=== PATIENT | male | born 1995 | race Caucasian/White ===

== ENCOUNTER 2016-11-18 11:36 | Inpatient (IN) | payer OTHER ==
[2016-11-18] MEDS ORDERED: VANCOMYCIN HCL/NORMAL SALINE 250 ML IV ONE (11:55)
[2016-11-18] MEDS ORDERED: NS 1,000 ML IV ONE ×2 (11:58)
--- NOTE | 2016-11-18 11:58 | EDPHY ---
H & P Time Seen by Provider: 11/18/16 11:43 HPI/ROS: CHIEF COMPLAINT: Left knee pain HISTORY OF PRESENT ILLNESS: This 21-year-old man with scrambling on a roof 2 days ago and cut his left knee on a metal protrusion. He felt pretty well yesterday but then over the last 12-15 hours he has had rapidly increasing severe left knee pain which is worse with palpation and any movement. Does not radiate.It is associated with fever and chills. Associated with redness and swelling of the area and decreased movement. REVIEW OF SYSTEMS: Eye: no change in vision ENT: no sore throat Cardiac: no chest pain or syncope Pulmonary: no cough or SOB Abdomen: no vomiting, diarrhea, abdominal pain Musculoskeletal: no back pain Skin: He has a healing burn on his right arm from previous injury, and some abrasions on his left arm from the same incident. Neuro: no headache Constitutional: Fever and chills as above. : no urinary symptoms A comprehensive 10 point review of systems is otherwise negative aside from elements mentioned in the history of present illness. PAST MEDICAL HISTORY: Negative, tetanus up-to-date. Social history: Nonsmoker General Appearance: Alert and conversant, cooperative. Eyes: No scleral icterus. ENT, Mouth: Normal mucous membranes. Respiratory: Normal respiratory effort, breath sounds equal, lungs are clear to auscultation. Cardiovascular: Regular rate and rhythm. Gastrointestinal: Abdomen is soft and non tender. Neurological: Alert and oriented x3. Normally conversant. Face symmetric, normal movement and sensation in all extremities. Skin: Patient has a 2 cm laceration on the distal left thigh laterally just above the knee. His entire knee is red swollen warm and tender with decreased range of motion but no lymphangitis. Musculoskeletal: Decreased range of motion of the left knee but compartments are soft. However he does have active flexion to about 90 degrees. Psychiatric: Not agitated. Emergency Department course/MDM: Patient presents with acute cellulitis and wound infection on his left knee with tachycardia to 127. He is also tachypneic and so meets SIRS criteria on arrival. IV normal saline resuscitation, wound culture sent, vancomycin 1 g IV, admission to hospitalist service. 1220: Meet severe sepsis criteria with elevated lactate, IV Invanz 1 g is added , 30 mL/kilos IV fluid resuscitation bolus, admission with surgical consultation. 1232: Bj for Dr. Trimble will admit. Seen by Dr. Yepez in the emergency department. Discussed in detail with the patient's mother who was here in the room with the patient. Smoking Status: Never smoked Constitutional: Initial Vital Signs Temperature (C) 37.5 C 11/18/16 11:39 Heart Rate 127 H 11/18/16 11:39 Respiratory Rate 22 H 11/18/16 11:39 Blood Pressure 122/59 H 11/18/16 11:39 O2 Sat (%) 95 11/18/16 11:39 O2 Delivery Mode Room Air Allergies/Adverse Reactions: No Known Allergies Allergy (Unverified 11/18/16 11:39) Home Medications: Medication Instructions Recorded NK [No Known Home Meds] 11/18/16 Medical Decision Making - Diagnostics Imaging: Left knee x-ray viewed independently by myself shows soft tissue swelling, no foreign body. X-ray reviewed with Dr. Matthews at 12:43 p.m. no joint effusion. Procedures: Procedure: Limited ultrasound of left knee. Indication: Cellulitis evaluate for abscess Findings: No fluid collection visualized on multiple images, soft tissues examined around the laceration. Interpretation: No abscess. Images personally obtained and interpreted by myself. Images archived. Differential Diagnosis: Differential considered including but not limited to cellulitis, fasciitis, abscess, DVT, foreign body Consult/Admit Bed Type: Marleni Voss saw pt in ED - Data Points Laboratory Results: Laboratory Results 11/18/16 12:00 11/18/16 12:00 11/18/16 11/18/16 11/18/16 12:57 12:00 11:55 WBC 27.44 H 10^3/uL (3.80-9.50) RBC 5.08 10^6/uL (4.40-6.38) Hgb 16.7 g/dL (13.7-17.5) Hct 45.9 % (40.0-51.0) MCV 90.4 fL (81.5-99.8) MCH 32.9 pg (27.9-34.1) MCHC 36.4 g/dL (32.4-36.7) RDW 11.7 % (11.5-15.2) Plt Count 197 10^3/uL (150-400) MPV 9.7 fL (8.7-11.7) Neut % (Auto) Not Reported Lymph % (Auto) Not Reported [place] % (Auto) Not Reported Eos % (Auto) Not Reported Baso % (Auto) Not Reported Nucleat RBC Rel Count 0.0 % (0.0-0.2) Absolute Neuts (auto) Not Reported Absolute Lymphs (auto) Not Reported Absolute Monos (auto) Not Reported Absolute Eos (auto) Not Reported Absolute Basos (auto) Not Reported Absolute Nucleated RBC 0.00 10^3/uL (0-0.01) Immature Gran % Not Reported Seg Neutrophils % 77 % Band Neutrophils % 13 % Lymphocytes % 1 % Monocytes % 9 % Immature Gran # Not Reported Absolute Seg Neuts 21.13 H 10^/uL (1.70-6.50) Absolute Band Neuts 3.57 H 10^3/uL (0.00-0.70) Absolute Lymphocytes 0.27 L 10^3/uL (1.00-3.00) Absolute Monocytes 2.47 H 10^3/uL (0.30-0.80) RBC/WBC/PLT Morphology NORMAL (NORMAL) Platelet Estimate ADEQUATE (ADEQ) Smear Review By Pending PT 13.5 SEC (12.0-15.0) INR 1.04 (0.83-1.16) APTT 25.2 SEC (23.0-38.0) VBG Lactic Acid 1.5 mmol/L 2.6 H mmol/L (0.7-2.1) (0.7-2.1) Sodium 138 mEq/L (134-144) Potassium 4.5 mEq/L (3.5-5.2) Chloride 104 mEq/L (97-110) Carbon Dioxide 21 L mEq/l (22-31) Anion Gap 13 mEq/L (8-16) BUN 10 mg/dL (7-23) Creatinine 0.9 mg/dL (0.7-1.3) Estimated GFR > 60 Glucose 115 H mg/dL (70-100) Calcium 9.7 mg/dL (8.5-10.4) Total Bilirubin 1.7 H mg/dL (0.1-1.4) Microbiology Results: MICROBIOLOGY 11/18/16 11:54 Knee - Swab Gram Stain - Final Medications Given: Discontinued Medications Vancomycin/Sodium Chloride (Vancomycin 1 Gm (Premix)) 250 mls @ 250 mls/hr IV EDNOW ONE PRN Reason: Protocol Stop: 11/18/16 12:54 Last Admin: 11/18/16 12:20 Dose: 250 mls Ertapenem 1 gm/ Sodium (Chloride) 100 mls @ 200 mls/hr IV EDNOW ONE PRN Reason: Protocol Stop: 11/18/16 12:47 Last Admin: 11/18/16 13:26 Dose: 100 mls Sodium Chloride (Ns *For Sepsis Order Set Only*) 2,722 ml IV EDNOW ONE Stop: 11/18/16 12:18 Last Admin: 11/18/16 12:19 Dose: 2,722 ml Departure - Departure Disposition: [facility] Inpatient Acute Clinical Impression: Cellulitis of left knee Condition: Fair Referrals: NONE *PRIMARY CARE P,. [Primary Care Provider] - As per Instructions
[2016-11-18] MEDS ORDERED: NS 1,000 ML BAG *FOR SEPSIS ORDER SET ONLY IV ONE (12:17)
[2016-11-18 12:18] LABS: ADD DIFF? YES; ADD MORPH? NO; ADD SCAN? NO; ATYPICAL LYMPHOCYTE FLAG 0 (0-99); FRAGMENT RBC FLAG 0 (0-99); HEMATOCRIT 45.9 % (40.0-51.0); HEMOGLOBIN 16.7 g/dL (13.7-17.5); LEFT SHIFT FLG 20 (0-99); LIPEMIA HEMOLYSIS FLAG 90 (0-99); MEAN CELL HEMOGLOBIN 32.9 pg (27.9-34.1); MEAN CELL HEMOGLOBIN CONCENTR. 36.4 g/dL (32.4-36.7); MEAN CELL VOLUME 90.4 fL (81.5-99.8); MEAN PLATELET VOLUME 9.7 fL (8.7-11.7); PLATELET CLUMPS FLAG 0 (0-99); PLATELET COUNT 197 10^3/uL (150-400); RED BLOOD CELL COUNT 5.08 10^6/uL (4.40-6.38); RED CELL DISTRIBUTION WIDTH 11.7 % (11.5-15.2)
[2016-11-18] MEDS ORDERED: ERTAPENEM 1 GM in NS 100 ML IV ONE (12:18)
[2016-11-18 12:26] LABS: APTT 25.2 SEC (23.0-38.0); INR 1.04 (0.83-1.16); PROTIME(PATIENT) 13.5 SEC (12.0-15.0)
[2016-11-18 12:43] LABS: ANION GAP 13 mEq/L (8-16); BILIRUBIN,TOTAL 1.7 mg/dL (0.1-1.4); CALCIUM 9.7 mg/dL (8.5-10.4); CARBON DIOXIDE 21 mEq/l (22-31); CHLORIDE 104 mEq/L (97-110); CREATININE 0.9 mg/dL (0.7-1.3); GLOMERULAR FILTRATION RATE > 60; GLUCOSE 115 mg/dL (70-100); POTASSIUM 4.5 mEq/L (3.5-5.2); SODIUM 138 mEq/L (134-144)
[2016-11-18 13:11] LABS: LACGHOST ORDER
[2016-11-18 13:16] LABS: PLATELET ESTIMATE ADEQUATE (ADEQ)
--- NOTE | 2016-11-18 13:44 | DX ---
Left Knee, Five Views Indication: Laceration over the distal lateral femur. Pain and swelling. Findings: A triangularly shaped dense material at the proximal medial tibia likely is an ossicle equi valent. At the distal lateral femur where the laceration is, there is no evidence for radiopaque soft tissue foreign body. The underlying bones and joints are within normal limits. No significant joint effusion. Significant soft tissue swelling at the distal anterior femur. Impression: 1. No radiopaque foreign body. 2. Soft tissue swelling. 3. No fracture or joint effusion. Findings are reviewed with Dr. Andrews Milton.
[2016-11-18] MEDS ORDERED: ONDANSETRON 4 MG/2 ML VIAL IVP PRN (16:42)
[2016-11-18] MEDS ORDERED: KETOROLAC 30 MG/1 ML SDV IVP PRN (16:42)
--- NOTE | 2016-11-18 17:22 | GHP ---
[f rep st] HISTORY AND PHYSICAL DATE OF ADMISSION: 11/18/2016 CHIEF COMPLAINT: Left knee redness. HISTORY: The patient is a 21-year-old male student who was intoxicated on Saturday night and was sc rambling onto a roof and scraped his left leg just above the knee. The next day it started to get mo re red with increasing pain. He had shaking chills all night and tactile fevers. He is having some drainage from the wound. He is now having streaking erythema up toward the groin. In the emergency room, they did do an ultrasound and did not find any underlying fluid to tap. PAST MEDICAL HISTORY: Negative. MEDICATIONS: None. ALLERGIES: No known drug allergies. SOCIAL HISTORY: No smoking. He drinks alcohol 2-3 times a week, 10 drinks on each occasion. He is a student at [employer] and also has a job. Lives with roommates. He grew up in [place]. His mom is at bedside. REVIEW OF SYSTEMS: Complete review of systems obtained and review of systems is negative on constitu tional, HEENT, GI, pulmonary, cardiovascular, , hematology, skin, muscular, endocrine, psych except for positives and negatives as in HPI. FAMILY HISTORY: Grandfather with lung cancer and NC at age 65. PHYSICAL EXAMINATION: GENERAL: Well-developed, well-nourished male, in no acute distress. VITAL SI GNS: Temperature is 37.5, pulse 127, blood pressure 159/78, sating 98% on room air. EYE: Normal co njunctiva. Pupils round and react light. ENT: Normal ears and nose. Hearing intact. Normal teeth . Oropharynx moist. NECK: Trachea midline. No thyromegaly. CHEST: Normal respiratory effort. PRASHANT NGS: Clear to auscultation bilaterally. CARDIOVASCULAR: Regular rhythm. No murmur. No lower extr emity edema. ABDOMEN: Soft, nontender. No hepatosplenomegaly. SKIN: He has some erythema just ab ove the knee, does not appear to be involving the knee joint. He has a significant open wound with s kin loss with no purulent drainage at this time. The erythema does not have any underlying fluctuanc e. There is dramatic streaking up the lymphatic system toward the groin on the upper leg. He has no rmal range of motion of the knee. MUSCULOSKELETAL: No cyanosis or clubbing. Strength 5/5 upper and lower extremities. NEUROLOGIC: Cranial nerves intact. Normal sensation to light touch. PSYCH: A lert and oriented x3. Normal affect. Normal judgment, insight. Normal memory. LABS: White count 27.44, 13% bands, hematocrit 45.9, platelets 197. Sodium 138, potassium 4.5, chlo ride 104, bicarb 21, BUN 10, creatinine 0.9, glucose 115. Lactate initially 2.6, now down to 1.5. K nee x-ray shows soft tissue swelling. ASSESSMENT/PLAN: 1. Left leg cellulitis. He has been started on IV vancomycin in the emergency room, which I will co ntinue until methicillin-resistant Staphylococcus aureus can be ruled out given the fact he is living in close quarters of a college dormitory type situation. Ultrasound was negative for underlying flu id in the emergency room. Will consult ID. 2. Sepsis. He did receive an appropriate IV fluid bolus in the emergency room with improvement of l actate. Will continue IV fluids. 3. Open wound. Will consult identity access management architect for management plan. 4. Alcohol use. He is drinking in a binge like manner. I doubt he will withdrawal. He should be c ounseled regarding responsible alcohol use. CODE STATUS: Full. ADMISSION STATUS: 1. Observation. Depending on progress, he may transition to oral antibiotics. 2. DVT prophylaxis: He is low risk. /[id number]/MODL
[2016-11-18] MEDS: ACETAMINOPHEN 325 MG TAB PO PRN ×2 (18:01→23:47)
[2016-11-18] MEDS: VANCOMYCIN 1.5 GM in D5W 250 ML IV SCH (23:48)
[2016-11-18] MEDS: NS 1,000 ML IV SCH (23:48)
[2016-11-19 05:18] LABS: ADD DIFF? YES; ADD MORPH? NO; ADD SCAN? YES; ATYPICAL LYMPHOCYTE FLAG 0 (0-99); FRAGMENT RBC FLAG 0 (0-99); HEMOGLOBIN 15.1 g/dL (13.7-17.5); LIPEMIA HEMOLYSIS FLAG 90 (0-99); MEAN CELL HEMOGLOBIN 33.7 pg (27.9-34.1); MEAN CELL VOLUME 93.8 fL (81.5-99.8); MEAN PLATELET VOLUME 10.5 fL (8.7-11.7); PLATELET CLUMPS FLAG 10 (0-99); PLATELET COUNT 157 10^3/uL (150-400); RED BLOOD CELL COUNT 4.48 10^6/uL (4.40-6.38)
[2016-11-19 05:28] LABS: ALANINE AMINOTRANSFERASE 36 IU/L (21-72); ALBUMIN 3.2 g/dL (3.5-5.0); ALKALINE PHOSPHATASE 84 IU/L (38-126); ANION GAP 8 mEq/L (8-16); ASPARTATE AMINOTRANSFERASE 22 IU/L (17-59); BILIRUBIN,TOTAL 1.2 mg/dL (0.1-1.4); BILIRUBIN-CONJUGATED 0.5 mg/dL (0.0-0.5); BILIRUBIN-UNCONJUGATED 0.7 mg/dL (0.0-1.1); CALCIUM 8.9 mg/dL (8.5-10.4); CARBON DIOXIDE 21 mEq/l (22-31); CHLORIDE 105 mEq/L (97-110); CREATININE 0.9 mg/dL (0.7-1.3); GLOMERULAR FILTRATION RATE > 60; GLUCOSE 100 mg/dL (70-100); POTASSIUM 4.1 mEq/L (3.5-5.2); SODIUM 134 mEq/L (134-144); TOTAL PROTEIN 5.8 g/dL (6.3-8.2)
[2016-11-19 05:45] LABS: LEFT SHIFT FLG 120 (0-99)
[2016-11-19 06:52] LABS: SCAN POSITIVE
[2016-11-19 06:57] LABS: PLATELET ESTIMATE ADEQUATE (ADEQ)
[2016-11-19] MEDS: ACETAMINOPHEN 325 MG TAB PO PRN ×4 (07:54→20:07)
--- NOTE | 2016-11-19 08:37 | WOCRNPDOC ---
WOCRN Advanced Assessment Note - Skin Integrity Problem, Advanced Assess Left Knee Laceration Dressing Type: Gauze, Maged Dressing Description: Clean/Dry, Intact Exudate Amount: Minimal Exudate Characteristic(s): Serosanguinous Integumentary Issue Intervention: Dressing Removed Gita Wound Tissue: Erythema (marked previously by staff climate scientist ), Hot Wound Bed Color: Red Wound Bed Constitution: Smooth Tissue Site Measurement - Head-to-Toe Length X Width X Depth (cm): 0.8x1.1x0.3 Skin Integrity Problem Comment: Small laceration extending to a shallow scrape distally. Apply silvasorb and Allevyn. Please reconsult prn.
--- NOTE | 2016-11-19 08:42 | HOSPPROG ---
Hospitalist Progress Note Assessment/Plan: Patient is a 21-year-old male who was a [employer] ([place], [place]) student. He scraped his left knee leg above the knee area. He started to have shaking chills and fevers. He came to the ER for further care. Today is my 1st encounter with the patient. Chart reviewed with Dr. Trimble who admitted the patient. Spoke with Dr. Jimenez who will see the patient today. #. left knee cellulitis with ascending lymphangitis * concern for strep infection * on vancomycin at this time * spoke with Dr. Jimenez and he will evaluate and decide on further antibiotics #. sepsis * patient continues to be tachycardic, febrile and has elevated white blood cell count * lactate improved with IV hydration #. alcohol use: will discuss when patient is feeling better #. DVT prophylaxis: LMWH Subjective: Joaquin is c/o right groin tenderness/also said he has been having ongoing fevers with associated chills. Objective: Vital Signs Temp Pulse Resp BP Pulse Ox 39.0 C H 118 H 16 127/59 H 95 11/19/16 07:49 11/19/16 07:49 11/19/16 07:49 11/19/16 07:49 11/19/16 07:49 Laboratory Results 11/19/16 04:24 11/19/16 04:24 11/18/16 11/19/16 11/20/16 05:59 05:59 05:59 Intake Total 5400 Balance 5400 PT 13.5 SEC (12.0-15.0) 11/18/16 12:00 INR 1.04 (0.83-1.16) 11/18/16 12:00 - Physical Exam Constitutional: uncomfortable, No not in pain Eyes: PERRL Ears, Nose, Mouth, Throat: hearing normal Cardiovascular: regular rate and rhythym, tachycardia Respiratory: no respiratory distress Gastrointestinal: normoactive bowel sounds Skin: warm (left knee with eyrthema extending up above the knee area/ there is streaking toward the groin area) Musculoskeletal: No no muscle tenderness Neurologic: AAOx3 Psychiatric: interacting appropriately, not anxious ICD10 Worksheet Patient Problems: Problems Problem Status Diagnosed Cellulitis of left knee Acute
--- NOTE | 2016-11-19 10:54 | GCON ---
[f rep st] CONSULTATION INPATIENT INFECTIOUS DISEASE CONSULTATION. REFERRING PHYSICIAN: Aiyana Lorenzo NP REASON FOR CONSULTATION: Left knee cellulitis with ascending lymphangitis. HISTORY OF PRESENT ILLNESS: Patient is a 21-year-old male, who suffered a minor anterior left knee i njury and abrasion on Saturday night. Patient reports having no problems on Saturday, but by late Satu evening the soft tissue over the area started to become painful. He started feeling systemicall y ill overnight Saturday to Saturday and presented to [facility] mid day on Saturday with f tee, chills and left knee redness. He was placed on vancomycin monotherapy. Currently, he is rest ing comfortably in his hospital room. He notes that the discomfort in the left knee area is pretty m uch identical to yesterday. He notes continued fevers. He is able to move his knee passively and th rough limited range of motion without pain. PAST MEDICAL HISTORY: None. PAST SURGICAL HISTORY: None noted. ANTIBIOTICS: Vancomycin. ALLERGIES: No known drug allergies. SOCIAL HISTORY: Patient is a student at . He has intermittent alcohol use. No tobacco use. Trish ve of [place], [place]. FAMILY HISTORY: Reviewed but noncontributory. REVIEW OF SYSTEMS: Other than that detailed above in history of present illness, a comprehensive 10- system review is negative. PHYSICAL EXAMINATION: VITAL SIGNS: Temperature maximum is 39.0, temperature current is 39.0, heart rate 118, respiratory rate is 16, blood pressure is 127/59. GENERAL: The patient is a well-formed, well-nourished mildly toxic young male in no acute distress. He is alert and oriented x3. He has a pleasant demeanor. HEENT: Normocephalic for age, atraumatic. No scleral icterus. No oral lesion. No drainage from the nares. Eyes: Lids and conjunctivae within normal limits. Pupils are equal an d round bilaterally. NECK: Supple without meningismus. LUNGS: Clear to auscultation bilaterally w ith good effort. HEART: Regular rate and rhythm. No murmur, rub, or gallop noted. EXTREMITIES: T he patient has mild peripheral edema of the left lower extremity. This is concentrated around the le ft knee area. SKIN: Warm and dry to the touch. No rash noted. Patient has mild abrasions on the l ateral superior aspect of the left knee. There is confluent erythema around the entirety of the knee s stretching up into the thigh, especially medially up the lymphatic chain. He is warm over the area and tender to touch. No fluctuance. MUSCULOSKELETAL: No other muscle belly tenderness is noted. No joint line effusion or arthritis is seen. NEURO: Cranial nerves 2-12 seem to be intact. Periphe ral sensation seems intact in all extremities. LABORATORY DATA: The patient's CBC dated 11/18/2016 shows a white blood cell count of 27.4, hemoglob in of 16.7, hematocrit 45.9, a platelet count of 197, differential is left shifted with 77% segmented neutrophils, 13% band forms. CBC on 11/19/2016 shows a white blood cell count of 22.3, with a sligh tly decreased left shift. Serum chemistries on 11/19/2016 shows sodium 134, potassium 4.1, chloride of 105, bicarbonate of 21, BUN of 9, creatinine 0.9. AST is 22, ALT is 36. MICROBIOLOGIC DATA: Patient has a knee swab dated 11/18/2016 which gram stain is showing 3+ gram-pos itive cocci. Wound culture is pending. Blood cultures from 11/18/2016 are also pending. ASSESSMENT: Rapid onset soft tissue infection, left knee, with ascending lymphangitis. Certainly se ems streptococcal. Patient has tenderness, although it is not extreme in the area. A lot of warmth and swelling. The vancomycin is likely providing primary coverage. W will add clindamycin for [place] effect. We will dose at 600 mg IV q.6 hours. We will follow his culture data and clinical course. PLAN: 1. Continue vancomycin. 2. Start clindamycin 600 mg IV q.8 hours. 3. Follow up blood and wound cultures, as well as clinical progress. /[id number]/MODL
[2016-11-19] MEDS: VANCOMYCIN 1.5 GM in D5W 250 ML IV SCH ×2 (11:48→22:44)
[2016-11-19] MEDS: CLINDAMYCIN 600 MG/DEXTROSE 50 ML IV SCH ×2 (14:28→21:25)
[2016-11-20 06:53] LABS: ADD DIFF? YES; ADD MORPH? NO; ATYPICAL LYMPHOCYTE FLAG 0 (0-99); FRAGMENT RBC FLAG 0 (0-99); HEMATOCRIT 40.9 % (40.0-51.0); HEMOGLOBIN 14.6 g/dL (13.7-17.5); LIPEMIA HEMOLYSIS FLAG 90 (0-99); MEAN CELL HEMOGLOBIN 33.1 pg (27.9-34.1); MEAN CELL HEMOGLOBIN CONCENTR. 35.7 g/dL (32.4-36.7); MEAN CELL VOLUME 92.7 fL (81.5-99.8); MEAN PLATELET VOLUME 10.2 fL (8.7-11.7); PLATELET CLUMPS FLAG 10 (0-99); PLATELET COUNT 157 10^3/uL (150-400); RED BLOOD CELL COUNT 4.41 10^6/uL (4.40-6.38); RED CELL DISTRIBUTION WIDTH 11.9 % (11.5-15.2)
[2016-11-20 06:56] LABS: ANION GAP 9 mEq/L (8-16); CALCIUM 8.8 mg/dL (8.5-10.4); CARBON DIOXIDE 23 mEq/l (22-31); CHLORIDE 103 mEq/L (97-110); CREATININE 0.9 mg/dL (0.7-1.3); GLOMERULAR FILTRATION RATE > 60; GLUCOSE 102 mg/dL (70-100); LEFT SHIFT FLG 150 (0-99); POTASSIUM 3.8 mEq/L (3.5-5.2); SODIUM 135 mEq/L (134-144)
[2016-11-20 06:57] LABS: ADD SCAN? NO
[2016-11-20 07:32] LABS: PLATELET ESTIMATE ADEQUATE (ADEQ)
[2016-11-20 07:33] LABS: GIANT PLATELETS PRESENT
[2016-11-20] MEDS: CLINDAMYCIN 600 MG/DEXTROSE 50 ML IV SCH ×3 (07:52→21:33)
--- NOTE | 2016-11-20 09:02 | HOSPPROG ---
Hospitalist Progress Note Assessment/Plan: Patient is a 21-year-old male who was a [employer] student. He scraped his left knee leg above the knee area. He started to have shaking chills and fevers. He came to the ER for further care. #. left knee cellulitis with ascending lymphangitis/Group A strep and MSSA * vanco dc today/ changed to Ancef/ also on clindamycin * continues to have fever and more pain and more swelling/ reviewed his care with Dr Coronado/ to get an MRI/ may need surgery to see #. sepsis * patient continues to be tachycardic, febrile and has elevated white blood cell count * lactate improved with IV hydration #. alcohol use: will discuss when patient is feeling better #. DVT prophylaxis: LMWh #. Plan : MRI today, follow blood cx/ repeat labs in a.m./ plan of care discussed with the patient and his mom, who is at the bedside/appreciate Dr Coronado' s involvement. Subjective: Joaquin said his leg is more painful, had pain in right groin area that has resolved. Objective: Vital Signs Temp Pulse Resp BP Pulse Ox 39.5 C H 113 H 18 104/57 L 96 11/20/16 00:00 11/20/16 00:00 11/20/16 00:00 11/20/16 00:00 11/20/16 00:00 Laboratory Results 11/20/16 05:42 11/20/16 05:42 11/19/16 11/20/16 11/21/16 05:59 05:59 05:59 Intake Total 1384 Balance 1384 PT 13.5 SEC (12.0-15.0) 11/18/16 12:00 INR 1.04 (0.83-1.16) 11/18/16 12:00 - Physical Exam Constitutional: uncomfortable, No not in pain Eyes: PERRL Ears, Nose, Mouth, Throat: hearing normal Cardiovascular: regular rate and rhythym, tachycardia Respiratory: no respiratory distress, no rales or rhonchi Gastrointestinal: normoactive bowel sounds, soft, non-tender abdomen Skin: other (left knee, area above the knee with more swelling, increase erythema,redness extends past the demarcation. Has more tenderness on lateral side of the thigh area.) Musculoskeletal: muscular tenderness Neurologic: AAOx3 Psychiatric: interacting appropriately ICD10 Worksheet Patient Problems: Problems Problem Status Onset Cellulitis of left knee Acute
--- NOTE | 2016-11-20 10:34 | PCMIDPN ---
Assessment/Plan: Assessment/Plan: 1. LLE cellulitis with extension: r/o necrotizing fascitis: - Spiking fevers despite vanco + clinda. - Cx with Group A strep and MSSA from wound - blood cx pending - Given above extension despite atbx, feel further evaluation is warranted with MRI with and without contrast of Left LE. spoke with radiology to coordiate STAT study. -Will Change vanco to Ancef and continue Clinda for now. -Will discuss further with surgery as well. -long discussion with patient , mom at bedside and father on phone regarding plan of care, culture results, mri, possible need for surgery etc. - care coorinated with hospitalist team and his Rn today as well. Subjective: spiking fevers. extension of erythema beyond areas of demarcation both on thigh and calf with increase in pain especially laterally. 8/10 in nature. Denies sob. denies abd pain. had loose mush stools yesterday and today. mom at bedside , dad on phone listening in to conversation. Objective: Vital Signs Temp Pulse Resp BP Pulse Ox 37.9 C 110 H 18 117/65 95 11/20/16 08:00 11/20/16 08:00 11/20/16 08:00 11/20/16 08:00 11/20/16 08:00 Laboratory Results 11/20/16 05:42 11/20/16 05:42 11/19/16 11/20/16 11/21/16 05:59 05:59 05:59 Intake Total 1384 Balance 1384 - Physical Exam General Appearance: alert Respiratory: lungs clear Cardiac/Chest: regular rate, rhythm Extremities: swelling Abdomen: normal bowel sounds, non-tender, soft, No distended Skin: erythema (Left thigh and leg with erythema extending beyond areas of demaraction. Skin is hot to touch. quite tender especially lateral thigh, popliteal and lateral calf. two abrasion noted with purulence noted, superfical in nature. ) - Time Spent With Patient Time Spent with Patient: greater than 35 minutes Time Spent with Patient: Greater than 35 minutes spent on this patients care, greater than 50% of time spent counseling, educating, and coordinating care regarding the above mentioned plan. ICD10 Worksheet Patient Problems: Problems Problem Status Onset Cellulitis of left knee Acute
[2016-11-20] MEDS ORDERED: ceFAZolin 2 GM/DEXTROSE 100 ML IV SCH (10:35)
[2016-11-20] MEDS ORDERED: GADOBUTROL 10 ML VIAL IVP ONE (11:19)
[2016-11-20] MEDS: ACETAMINOPHEN 325 MG TAB PO PRN ×2 (12:57→20:50)
[2016-11-20] MEDS: ceFAZolin 2 GM in D5W 100 ML IV SCH ×3 (12:57→21:33)
[2016-11-20] MEDS: ENOXAPARIN 40 MG/0.4 ML SYR SC SCH (15:24)
[2016-11-20] MEDS: NS 1,000 ML IV SCH (15:48)
[2016-11-21] MEDS: NS 1,000 ML IV SCH ×2 (02:54→15:29)
[2016-11-21 05:49] LABS: % IMMATURE GRANULYOCYTES 0.4 % (0.0-1.1); ABSOLUTE IMMATURE GRANULOCYTES 0.07 10^3/uL (0.00-0.10); ADD DIFF? NO; ADD MORPH? NO; ADD SCAN? NO; ATYPICAL LYMPHOCYTE FLAG 20 (0-99); FRAGMENT RBC FLAG 0 (0-99); HEMATOCRIT 40.4 % (40.0-51.0); HEMOGLOBIN 14.5 g/dL (13.7-17.5); LEFT SHIFT FLG 20 (0-99); LIPEMIA HEMOLYSIS FLAG 90 (0-99); MEAN CELL HEMOGLOBIN CONCENTR. 35.9 g/dL (32.4-36.7); MEAN PLATELET VOLUME 10.2 fL (8.7-11.7); PLATELET CLUMPS FLAG 0 (0-99); PLATELET COUNT 163 10^3/uL (150-400); RED BLOOD CELL COUNT 4.39 10^6/uL (4.40-6.38); RED CELL DISTRIBUTION WIDTH 11.5 % (11.5-15.2)
[2016-11-21] MEDS: CLINDAMYCIN 600 MG/DEXTROSE 50 ML IV SCH ×3 (05:51→21:34)
[2016-11-21 06:06] LABS: ALANINE AMINOTRANSFERASE 35 IU/L (21-72); ALBUMIN 2.9 g/dL (3.5-5.0); ALKALINE PHOSPHATASE 101 IU/L (38-126); ANION GAP 9 mEq/L (8-16); ASPARTATE AMINOTRANSFERASE 21 IU/L (17-59); CALCIUM 8.4 mg/dL (8.5-10.4); CARBON DIOXIDE 23 mEq/l (22-31); CHLORIDE 104 mEq/L (97-110); CREATININE 0.9 mg/dL (0.7-1.3); GLOMERULAR FILTRATION RATE > 60; GLUCOSE 98 mg/dL (70-100); POTASSIUM 3.7 mEq/L (3.5-5.2); SODIUM 136 mEq/L (134-144); TOTAL PROTEIN 5.6 g/dL (6.3-8.2)
[2016-11-21] MEDS: ceFAZolin 2 GM in D5W 100 ML IV SCH ×3 (06:32→21:33)
[2016-11-21] MEDS: ENOXAPARIN 40 MG/0.4 ML SYR SC SCH (08:39)
--- NOTE | 2016-11-21 09:23 | PCMIDPN ---
Assessment/Plan: Assessment: Plan: Objective: Vital Signs Temp Pulse Resp BP Pulse Ox 37.7 C 100 16 144/75 H 96 11/21/16 08:00 11/21/16 08:00 11/21/16 08:00 11/21/16 08:00 11/21/16 08:00 Laboratory Results 11/21/16 05:39 11/21/16 05:39 11/20/16 11/21/16 11/22/16 05:59 05:59 05:59 Intake Total 1384 3075 Output Total 100 Balance 1384 2975 ICD10 Worksheet Patient Problems: Problems Problem Status Onset Cellulitis of left knee Acute
--- NOTE | 2016-11-21 13:01 | PCMIDPN ---
Assessment/Plan: # Severe left lower extremity cellulitis due to group A strep and MSSA, elements of improvement today with less intense erythema , less pain, improving leukocytosis, and improving fever curve trajectory. Blood cultures from 11/18/2016 remain negative. MRI does not demonstrate joint involvement, abscess or clear necrotizing fasciitis. --plan to continue dual therapy with Ancef and clindamycin --another 1- 2 day of clindamycin for the Eek affect --encouraged ongoing elevation Medications, antibiotic day # 3 Ancef 2 g IV Q 8 Clindamycin 600 mg IV Q 8, # 2 Reviewed findings with patient and his father who are at bedside Subjective: Patient feels that he has less pain associated with his left leg and that his fever is improving. He was able to sleep ease year last night. No diarrhea Objective: Vital Signs Temp Pulse Resp BP Pulse Ox 37.8 C 97 17 132/71 H 95 11/21/16 12:00 11/21/16 12:00 11/21/16 12:00 11/21/16 12:00 11/21/16 12:00 Laboratory Results 11/21/16 05:39 11/21/16 05:39 11/20/16 11/21/16 11/22/16 05:59 05:59 05:59 Intake Total 1384 3075 Output Total 100 Balance 1384 2975 - Physical Exam General Appearance: alert, no apparent distress, other (Healthy-appearing young male) Respiratory: lungs clear Neck: supple Cardiac/Chest: regular rate, rhythm Extremities: normal range of motion (Left knee without signs of pain with range of motion), swelling (Mild left thigh swelling), erythema (Extensive erythema with irregular borders from upper lateral left thigh extending to lower anterior thigh, knee, lateral calf. Obvious progression past initial lines drawn in the emergency room, which was present yesterday), other (Tenderness most prominent left lateral upper thigh), No calf tenderness Skin: normal color, warm/dry, No rash Neuro/Psych: alert, normal mood/affect, oriented x 3 - Time Spent With Patient Time Spent with Patient: greater than 25 minutes (Coordination of care and examination with Dr. Megan Maher) Time Spent with Patient: Greater than 25 minutes spent on this patients care, greater than 50% of time spent counseling, educating, and coordinating care regarding the above mentioned plan. ICD10 Worksheet Patient Problems: Problems Problem Status Onset Cellulitis of left knee Acute
[2016-11-21] MEDS: IBUPROFEN 600 MG TAB PO PRN (16:18)
--- NOTE | 2016-11-21 16:18 | HOSPPROG ---
Hospitalist Progress Note Assessment/Plan: Patient is a 21-year-old male who was a [employer] student- scraped his left leg above the knee and developed shaking chills and fevers # acute severe left leg cellulitis with ascending lymphangitis- admit wound culture with both Group A strep and MSSA MRI ( personally reviewed and interpreted) without abscess or intramuscular involvement erythema extending beyond markings this morning- however streaking improved - fever also improving - cont synergistic use of IV Ancef and clindamycin - start ibuprofen # sepsis 2/2 cellulitis- (patient presented febrile, tachycardic and WBC of 27) - received aggressive fluid resuscitation - continue IV antibiotics # acute leukocytosis- secondary to cellulitis 27-> 18 on antibiotics oxygen saturations 95% on room air - continue to follow # alcohol use # DVT prophylaxis: LMWh # disposition- greater than 2 midnights as the patient requiring IV antibiotics for severe cellulitis I have discussed the case with Dr. Roberts from infectious disease we will continue the combination of Ancef and clindamycin IV today Subjective: pain and fever improved overnight Objective: Vital Signs Temp Pulse Resp BP Pulse Ox 37.8 C 97 17 132/71 H 95 11/21/16 12:00 11/21/16 12:00 11/21/16 12:00 11/21/16 12:00 11/21/16 12:00 Laboratory Results 11/21/16 05:39 11/21/16 05:39 11/20/16 11/21/16 11/22/16 05:59 05:59 05:59 Intake Total 1384 3075 Output Total 100 Balance 1384 2975 PT 13.5 SEC (12.0-15.0) 11/18/16 12:00 INR 1.04 (0.83-1.16) 11/18/16 12:00 - Physical Exam Constitutional: appears nourished Eyes: anicteric sclera Ears, Nose, Mouth, Throat: moist mucous membranes Cardiovascular: regular rate and rhythym Respiratory: no respiratory distress, no rales or rhonchi Gastrointestinal: normoactive bowel sounds, soft, non-tender abdomen Genitourinary: no bladder fullness Skin: other ( cellulitis of left leg extending me on markings) Musculoskeletal: other ( no edema) Neurologic: AAOx3 Psychiatric: interacting appropriately, not anxious Lymph, Heme, Immunologic: no cervical LAD ICD10 Worksheet Patient Problems: Problems Problem Status Onset Cellulitis of left knee Acute
[2016-11-22] MEDS: NS 1,000 ML IV SCH (01:10)
[2016-11-22] MEDS: ceFAZolin 2 GM in D5W 100 ML IV SCH ×3 (05:46→21:11)
[2016-11-22] MEDS: CLINDAMYCIN 600 MG/DEXTROSE 50 ML IV SCH ×3 (05:46→21:57)
[2016-11-22 05:47] LABS: HEMATOCRIT 39.2 % (40.0-51.0); HEMOGLOBIN 13.9 g/dL (13.7-17.5); MEAN CELL HEMOGLOBIN 33.1 pg (27.9-34.1); MEAN CELL HEMOGLOBIN CONCENTR. 35.5 g/dL (32.4-36.7); MEAN CELL VOLUME 93.3 fL (81.5-99.8); RED BLOOD CELL COUNT 4.2 10^6/uL (4.40-6.38); RED CELL DISTRIBUTION WIDTH 11.8 % (11.5-15.2)
[2016-11-22] MEDS: ENOXAPARIN 40 MG/0.4 ML SYR SC SCH (08:58)
--- NOTE | 2016-11-22 09:38 | PCMIDPN ---
Assessment/Plan: Assessment: Left Lower extremity severe cellulitis. Since for necrotizing fasciitis. MSSA and group a strep in culture. Patient on cefazolin and clindamycin. Clearly he is clinically improving. His white blood cell count is significantly improved today. His fever curve is also improving. He still on exam has significant warmth redness and induration on the posterior aspect of his left thigh. Would advise to continue to treat with IV antibiotics over the next 1-2 days. With continued improvement he may be able to discharge on oral antibiotics at that point. No evidence of bacteremia. Plan: 1. Continue Ancef 2 g IV q.8 hours. 2. Continue clindamycin 600 mg IV q.8 hours. 3. Follow appearance of the left leg. Subjective: Patient states that he is improving. No new complaints. Having any easier time ambulating with putting pressure on his left leg. No fevers or chills overnight Objective: Cefazolin #2 (Abx #4) Clindamycin #3 Vital Signs Temp Pulse Resp BP Pulse Ox 36.6 C 86 18 132/78 H 98 11/22/16 08:00 11/22/16 08:00 11/22/16 08:00 11/22/16 08:00 11/22/16 08:00 Laboratory Results 11/22/16 05:23 11/21/16 05:39 11/21/16 11/22/16 11/23/16 05:59 05:59 05:59 Intake Total 3075 1154 Output Total 100 Balance 2975 1154 - Physical Exam General Appearance: WD/WN, alert, no apparent distress, non-toxic Respiratory: lungs clear, normal breath sounds, No respiratory distress Cardiac/Chest: regular rate, rhythm, No tachycardia Extremities: inflammation (Improved), swelling (Improved), erythema (Persistent but improved), other (No induration. No fluctuance.), No non-tender (Mildly tender left lower extremity to palpation), No normal inspection (Persistent erythema and edema left lower extremity upper half of the calf and lower half of the posterior lateral thigh.) Skin: normal color, warm/dry, No rash Neuro/Psych: alert, normal mood/affect, oriented x 3 ICD10 Worksheet Patient Problems: Problems Problem Status Onset Cellulitis of left knee Acute
--- NOTE | 2016-11-22 13:25 | HOSPPROG ---
Hospitalist Progress Note Assessment/Plan: #Acute left lower extremity cellulitis: cont IV Ancef/Clindamycin (MRI reviewed by me, no abscess) -MSSA, Group A Strep -still significant erythema #Leukocytosis: nearly resolved #Sepsis: resolved, due to cellulitis #Alcohol abuse: no e/o withdrawal #Diet: regular #DVT ppx: Lovenox #Disp: warrants admission with persistent erythema, cont IV abx. Suspect DC in next 1-2 days Subjective: pain improved in leg Objective: Vital Signs Temp Pulse Resp BP Pulse Ox 36.8 C 86 16 132/74 H 96 11/22/16 12:55 11/22/16 12:55 11/22/16 12:55 11/22/16 12:55 11/22/16 12:55 Laboratory Results 11/22/16 05:23 11/21/16 05:39 11/21/16 11/22/16 11/23/16 05:59 05:59 05:59 Intake Total 3075 1154 Output Total 100 Balance 2975 1154 PT 13.5 SEC (12.0-15.0) 11/18/16 12:00 INR 1.04 (0.83-1.16) 11/18/16 12:00 - Physical Exam Constitutional: no apparent distress Eyes: PERRL Ears, Nose, Mouth, Throat: moist mucous membranes Cardiovascular: regular rate and rhythym, no murmur, rub, or gallop Respiratory: no respiratory distress, no rales or rhonchi Gastrointestinal: normoactive bowel sounds, soft, non-tender abdomen Genitourinary: no bladder fullness, no bladder tenderness Skin: warm Musculoskeletal: other (left LE with erythema to thigh. ) Neurologic: AAOx3, CN II-XII Intact Psychiatric: interacting appropriately ICD10 Worksheet Patient Problems: Problems Problem Status Onset Cellulitis of left knee Acute
[2016-11-23] MEDS: CLINDAMYCIN 600 MG/DEXTROSE 50 ML IV SCH (05:17)
[2016-11-23 05:47] LABS: HEMATOCRIT 41.4 % (40.0-51.0); HEMOGLOBIN 14.8 g/dL (13.7-17.5); MEAN CELL HEMOGLOBIN 33.1 pg (27.9-34.1); MEAN CELL HEMOGLOBIN CONCENTR. 35.7 g/dL (32.4-36.7); MEAN CELL VOLUME 92.6 fL (81.5-99.8); RED BLOOD CELL COUNT 4.47 10^6/uL (4.40-6.38); RED CELL DISTRIBUTION WIDTH 11.6 % (11.5-15.2)
[2016-11-23] MEDS: ceFAZolin 2 GM in D5W 100 ML IV SCH ×3 (06:14→20:59)
[2016-11-23 07:04] LABS: ANION GAP 11 mEq/L (8-16); CALCIUM 8.9 mg/dL (8.5-10.4); CARBON DIOXIDE 23 mEq/l (22-31); CHLORIDE 105 mEq/L (97-110); CREATININE 0.8 mg/dL (0.7-1.3); GLOMERULAR FILTRATION RATE > 60; GLUCOSE 87 mg/dL (70-100); POTASSIUM 3.8 mEq/L (3.5-5.2); SODIUM 139 mEq/L (134-144)
[2016-11-23] MEDS: ENOXAPARIN 40 MG/0.4 ML SYR SC SCH (08:45)
--- NOTE | 2016-11-23 09:59 | PCMIDPN ---
Assessment/Plan: 1. Severe left lower extremity cellulitis secondary to MSSA and group a strep without evidence of necrotizing fasciitis or pyomyositis: Had long conversation with patient and his parents (the patient's mother is a pediatric nurse and his father is a boat crew deck hand at [employer]). Will discontinue clindamycin (have likely exhausted therapeutic benefit of this antibiotic) and continue cefazolin alone. I explained to the patient and his parents that I feel that he needs another day in the hospital given that he still has a fair amount of erythema posterior to the knee as well as the lateral thigh. Thankfully, he does not seem to be developing a drainable focus , and overall his pain is much better.I sensed that his mother would like him home as soon as possible, and she wanted to know the trajectory of his antibiotics. At this point in time, given the severity of his infection I suspect he will need a few more days of intravenous cefazolin moving forward before changing to oral therapy. I told them that this could probably be done through a peripheral IV (parents can administer Ancef every 8 hours at home), obviating the need for a PICC line. The patient also needs to keep his leg elevated above his heart if possible (was only elevating it perhaps 20 degrees) . The patient and his family expressed understanding. Also of note, I made the patient an appointment to see Dr. Hakan Ohara this Saturday at 3:30 p.m. in our clinic. This appointment time will need to be given to the parents. Subjective: Pain much better, but still has fairly significant erythema posterior to the knee and creeping up the lateral thigh. No diarrhea. Objective: Ancef 2 g IV q.8 hours day 3 (antibiotics day 5) Clindamycin 600 mg IV q.8 hours day 4 T-max 37degrees for Vital Signs Temp Pulse Resp BP Pulse Ox 36.6 C 73 18 139/66 H 95 11/23/16 08:00 11/23/16 08:00 11/23/16 08:00 11/23/16 08:00 11/23/16 08:00 Laboratory Results 11/23/16 05:04 11/23/16 05:04 11/22/16 11/23/16 11/24/16 05:59 05:59 05:59 Intake Total 2654 Balance 2654 Blood cultures negative Wound culture with 2+ MSSA and 3+ group a strep - Physical Exam General Appearance: alert, no apparent distress EENT: pharynx normal, No scleral icterus Respiratory: lungs clear Cardiac/Chest: regular rate, rhythm Extremities: other (Left lower extremity: Pretibial area with brawny erythema. patient has an excoriation/ulceration with clean base on the top of his knee. No surrounding fluctuance or tenderness. Posterior to the knee and lateral thigh is notable for fairly beet red erythema. No significant squeeze tenderness of the thigh muscles. Patient is able to flex and extend his knee without pain. No obvious drainable focus on exam. No bullae. No hypesthesia.) ICD10 Worksheet Patient Problems: Problems Problem Status Onset Cellulitis of left knee Acute
[2016-11-23] MEDS: IBUPROFEN 600 MG TAB PO PRN (12:31)
--- NOTE | 2016-11-23 15:31 | HOSPPROG ---
Hospitalist Progress Note Assessment/Plan: 21-year-old male presents emergency room complaints of knee pain. With erythema. This is my 1st encounter with the patient, chart reviewed. Patient' s plan of care discussed with Dr. Orta of Infectious Disease. #Acute left lower extremity cellulitis: cont IV Ancef -MSSA, Group A Strep -still significant erythema -Plan for cont IV Ancef until Saturday #Leukocytosis: nearly resolved #Sepsis: resolved, due to cellulitis #Alcohol abuse: no e/o withdrawal #Diet: regular #DVT ppx: Lovenox #Disp: warrants admission with persistent erythema, cont IV abx. Suspect DC in next 1-2 days Possible DC home with IV abx. Subjective: Feeling better. Eager to leave the hospital. Pain is manageable. Objective: Vital Signs Temp Pulse Resp BP Pulse Ox 36.5 C 89 18 136/67 H 96 11/23/16 12:00 11/23/16 12:00 11/23/16 12:00 11/23/16 12:00 11/23/16 12:00 Laboratory Results 11/23/16 05:04 11/23/16 05:04 11/22/16 11/23/16 11/24/16 05:59 05:59 05:59 Intake Total 2654 Balance 2654 PT 13.5 SEC (12.0-15.0) 11/18/16 12:00 INR 1.04 (0.83-1.16) 11/18/16 12:00 - Physical Exam Constitutional: no apparent distress, appears nourished, not in pain Eyes: PERRL, anicteric sclera, EOMI Ears, Nose, Mouth, Throat: moist mucous membranes, hearing normal, ears appear normal Cardiovascular: No JVD, No tachycardia, No bradycardia Respiratory: no respiratory distress, no rales or rhonchi, reduced air movement Gastrointestinal: normoactive bowel sounds, No tenderness, No ascites Skin: warm, abrasion, erythema Musculoskeletal: normal joint ROM, muscular tenderness, generalized weakness Neurologic: AAOx3 Psychiatric: interacting appropriately, not anxious, not encephalopathic ICD10 Worksheet Patient Problems: Problems Problem Status Onset Cellulitis of left knee Acute
[2016-11-24] MEDS: ceFAZolin 2 GM in D5W 100 ML IV SCH ×2 (05:24→14:33)
[2016-11-24 08:02] VITALS: BP 133/89; PULSE 69; RESP 12; TEMP 98; O2SAT 96
[2016-11-24] MEDS: ENOXAPARIN 40 MG/0.4 ML SYR SC SCH (09:30)
--- NOTE | 2016-11-24 14:26 | PDIAF ---
- Diagnosis Diagnosis: Left lower extremity cellulitis Code Status: Full Code - Medication Management Discharge Medications: Medications to Continue on Transfer Acetaminophen [Tylenol 325mg (*)] 650 mg PO Q4 PRN #0 tab 11/24/16 [Last Taken Unknown] Ibuprofen [Motrin (*)] 600 mg PO Q6HRS PRN #0 tab 11/24/16 [Last Taken Unknown] Long-Term Antibiotics: Cefazolin 2 g IV q8 hours Long-Term Antibiotic Stop Date: 11/26/16 Discharge Medications: Refer to the Discharge Home Medication list for PRN reason. - Follow Up Care Current Providers and Referrals: NONE *PRIMARY CARE P,. [Primary Care Provider] - As per Instructions Hakan Ohara MD [Medical Doctor] - 11/26/16 3:30 pm
--- NOTE | 2016-11-24 14:43 | PDIAF ---
- Diagnosis Diagnosis: Left lower extremity cellulitis Code Status: Full Code - Medication Management Discharge Medications: Medications to Continue on Transfer Acetaminophen [Tylenol 325mg (*)] 650 mg PO Q4 PRN #0 tab 11/24/16 [Last Taken Unknown] Ibuprofen [Motrin (*)] 600 mg PO Q6HRS PRN #0 tab 11/24/16 [Last Taken Unknown] ceFAZolin [Ancef] 2 gm IV Q8 #0 vial 11/24/16 [Last Taken Unknown] Longterm Antibiotics: Cefazolin 2 g IV q8 hours High Rigger Antibiotic Stop Date: 11/26/16 Discharge Medications: Refer to the Discharge Home Medication list for PRN reason. PICC Care - Routine: N/A - Orders Diet Recommendation: no restrictions on diet - Follow Up Care Current Providers and Referrals: Hakan Ohara MD [Medical Doctor] - 11/26/16 3:30 pm NONE *PRIMARY CARE P,. [Primary Care Provider] - As per Instructions
--- NOTE | 2016-11-24 14:50 | PCMIDPN ---
Assessment/Plan: Assessment/Plan: * Severe cellulitis left lower extremity: Clinically improved with residual cellulitis posterior thigh above popliteal fossa with mild induration. No focal fluctuance or bulla. Plan to continue cefazolin as outpatient via peripheral IV until seen in follow-up by me on Saturday afternoon. Emphasized need to continue elevation. Advised to notify me for fever, chills, increasing erythema, skin rash or diarrhea. 11/24/16 14:48 Subjective: Patient feels better with mild residual pain and redness in left posterior thigh. Objective: Vital Signs Temp Pulse Resp BP Pulse Ox 36.6 C 69 12 133/89 H 96 11/24/16 08:00 11/24/16 08:00 11/24/16 08:00 11/24/16 08:00 11/24/16 08:00 Laboratory Results 11/23/16 05:04 11/23/16 05:04 11/23/16 11/24/16 11/25/16 05:59 05:59 05:59 Intake Total 2654 Balance 2654 Cefazolin # 4 (antibiotics # 6) Blood cultures no growth Wound cultures group A strep, MSSA - Physical Exam General Appearance: alert, no apparent distress EENT: No scleral icterus Cardiac/Chest: regular rate, rhythm, No systolic murmur Extremities: inflammation (Left lower extremity with faint erythema along inferior posterior thigh/popliteal fossa with mild/moderate induration; no fluctuance; no bulla) Abdomen: non-tender, No distended Lymphatic: other (No left thigh lymphangitis or adenopathy) ICD10 Worksheet Patient Problems: Problems Problem Status Onset Cellulitis of left knee Acute
--- NOTE | 2016-11-24 14:55 | PDIAF ---
- Diagnosis Diagnosis: Left lower extremity cellulitis Code Status: Full Code - Medication Management Discharge Medications: Medications to Continue on Transfer Acetaminophen [Tylenol 325mg (*)] 650 mg PO Q4 PRN #0 tab 11/24/16 [Last Taken Unknown] Ibuprofen [Motrin (*)] 600 mg PO Q6HRS PRN #0 tab 11/24/16 [Last Taken Unknown] ceFAZolin [Ancef] 2 gm IV Q8 #0 vial 11/24/16 [Last Taken Unknown] Prison Antibiotics: Cefazolin 2 g IV q8 hours Greeter Antibiotic Stop Date: 11/26/16 Discharge Medications: Refer to the Discharge Home Medication list for PRN reason. PICC Care - Routine: N/A - Orders Services needed: Home Care, Registered Nurse Home Care Face to Face: I certify that this patient was under my care and that I had the required [id number] encounter meeting the encounter requirements on the discharge day. My findings support the fact that the patient is homebound as defined in CMS Chapter 7 Medicare Benefits Manual 30.1.1, The condition of the patient is such that there exists a normal inability to leave home and consequently, leaving home would require a considerable and taxing effort. Diet Recommendation: no restrictions on diet - Follow Up Care Current Providers and Referrals: Hakan Ohara MD [Medical Doctor] - 11/26/16 3:30 pm NONE *PRIMARY CARE P,. [Primary Care Provider] - As per Instructions
--- NOTE | 2016-11-24 15:45 | GDS ---
[f rep st] DISCHARGE SUMMARY DISCHARGE DIAGNOSIS: Left lower extremity cellulitis secondary to methicillin-susceptible Staphyloc occus aureus and group A strep. PHYSICAL EXAM: GENERAL: The patient is alert. VITAL SIGNS: Afebrile at 36.6, pulse 69, respirato ry rate is 12, blood pressure is 133/89. He is saturating 96% on room air. I have seen and evaluat ed the patient on the day of discharge. HOSPITAL COURSE: 1. The patient is a 21-year-old male who presented to the emergency room with complaints of left lo wer extremity knee pain with redness. He was evaluated and diagnosed with left lower extremity cell ulitis secondary to MSSA and group A strep. During this hospitalization he received consultation fr om Infectious Disease and treated with IV Ancef during this hospital course. I will continue this i n the outpatient setting. Outpatient antibiotic therapy has been arranged for the patient and he wi ll continue this at home. 2. Leukocytosis. This is secondary to acute infectious process. 3. Sepsis. This is resolved. DISPOSITION: The patient will be discharged home independently with IV antibiotic Ancef. I have di scussed this with Dr. Hakan Ohara as well as the patient and his parents. They are all in agreement w ith the plan of disposition and followup in the outpatient setting. Followup will be with Dr. Ohara on 11/26/2016 at 3:30 a.m. in the afternoon. He will also follow up with his primary care physician . There are no pending studies. DISCHARGE MEDICATIONS: Please refer to EMR form. I have not provided the patient any prescriptions at the time of disposition. He will continue IV Ancef 2 g IV q.8. I spent greater than 35 minutes in the care, coordination and management of this patient's disposition. /[id number]/MODL
== END 2016-11-24 15:52 | disposition home or self-care (01) | DRG 872 ==
LOC: INTOOBSV 12:38 → F3N 13:45 → OBSVTOIN 11-19 11:46 → UNDODISIN 11-19 13:52 → F1N 11-19 13:55 → F3E 11-22 14:44
PROVIDERS: ADMIT Internal Medicine; ATTEND Internal Medicine
DX: A41.01 Sepsis due to Methicillin susceptible Staphylococcus aureus (principal); A40.0 Sepsis due to streptococcus, group A; L03.116 Cellulitis of left lower limb; F10.10 Alcohol abuse, uncomplicated; S80.912A Unspecified superficial injury of left knee, initial encounter; X58.XXXA Exposure to other specified factors, initial encounter
CPT/HCPCS: 96365; 97116-GP; 97161-GP; 97530-GP; A9585; G0378; J0690; J1335; J1650; J3370